=== PATIENT | female | born 1990 | race Caucasian/White ===

== ENCOUNTER 2022-05-06 08:32 | Outpatient (CLI) | payer BC, SELFPAY ==
--- NOTE | 2022-05-06 08:45 | CRLHL7_ITS ---
For Patients: As a result of the Cures Act, medical imaging exams and procedure reports are released immediately into your electronic medical record. You may view this report before your referring provider. If you have questions, please contact your health care provider. INDICATION: First trimester scan, establish dates. COMPARISON: None. TECHNIQUE: Real-time becerril-scale imaging of the pelvis was performed. FINDINGS: Sonographic imaging demonstrates a single living intrauterine gestation. The embryo demonstrates a regular cardiac rate measuring 176 beats per minute. The embryo`s crown-rump length measurement of 2.0 cm corresponds to a gestational age of 8 weeks 4 days with a sonographic due date of 12/12/2021. There is a normal-appearing yolk sac. There are no gross abnormalities noted within the embryo at this early state of development. The gestational sac has a normal appearance. Right fundal subchorionic hemorrhage measures 1.7 x 1.2 x 1.7 cm. Left mid subchorionic hemorrhage measuring 1.0 x 2.5 x 0.7 cm. The amount of fluid within the sac appears appropriate for gestational age. The cervix is closed. The myometrium appears normal. The ovaries are of normal size. Corpus luteal cyst and simple cyst right ovary. There are no suspicious fluid collections noted in the cul-de-sac. IMPRESSION: Single living intrauterine with sonographic gestational age 8 weeks 4 days and sonographic due date 12/12/2022. Subchorionic hemorrhages measuring 1.7 cm and 2.5 cm. Dictated by Rodolfo Mclean MD @ 05/06/2022 10:34:08 AM (Electronically Signed)
== END 2022-05-06 08:33 | disposition home or self-care (01) ==
PROVIDERS: Visit Provider Advanced Practice Midwife
DX: Z34.91 Encounter for supervision of normal pregnancy, unspecified, first trimester (principal)
CPT/HCPCS: 76817; 86592; 86703; 86762; 86787; 86803; 86850; 86900; 86901; 87086; 87340; 87491; 87591

== ENCOUNTER 2022-06-03 09:49 | Outpatient (CLI) | payer BC, SELFPAY ==
[2022-06-03 14:29] LABS: Alanine Aminotransferase* 13 U/L (4-35); Aspartate Amino Transferase* 19 U/L (12-35); Blood Urea Nitrogen* 14 mg/dL (5-24); Creatinine* 0.5 mg/dL (0.5-1.5); Estimated Glomerular Filt Rate 129 ml/min
[2022-06-03 14:42] LABS: Total Protein Urine < 5 mg/dL
[2022-06-03 14:44] LABS: Creatinine Urine 222.1 mg/dL
== END 2022-06-03 09:50 | disposition home or self-care (01) ==
PROVIDERS: Visit Provider Physician Assistant
DX: Z34.91 Encounter for supervision of normal pregnancy, unspecified, first trimester (principal); Z3A.12 12 weeks gestation of pregnancy
CPT/HCPCS: 82565; 82570; 84156; 84450; 84460; 84520; 84550

== ENCOUNTER 2022-07-25 09:32 | Outpatient (CLI) | payer BC, SELFPAY ==
--- NOTE | 2022-07-25 09:45 | CRLHL7_ITS ---
For Patients: As a result of the Century Cures Act, medical imaging exams and procedure reports are released immediately into your electronic medical record. You may view this report before your referring provider. If you have questions, please contact your health care provider. INDICATION: Evaluate anatomy. COMPARISON: None. TECHNIQUE: Real time becerril scale imaging of the fetus was performed. FINDINGS: Sonographic imaging demonstrates a single living intrauterine gestation. Fetus demonstrates a regular cardiac rate of 150 beats per minute. Fetus has a breech orientation and longitudinal lie. The placenta lies anteriorly without evidence of placenta previa. Amniotic fluid volume appears normal. Single deepest vertical pocket: 5.3 cm. The cervix is closed and measures 3.0 cm in length. The composite ultrasound gestational age is calculated at 20 weeks 0 days with an estimated sonographic due date of December 12, 2022. The estimated weight is 317 grams which lies at the 45th percentile. The following biometric measurements were obtained: Biparietal diameter: 4.8 cm/ 20 weeks 3 days 75% Head circumference: 17.3 cm/19 weeks 6 days 43% Abdominal circumference: 14.9 cm/20 weeks 1 day 54% Femur length: 3.1 cm/19 weeks 3 days 29% The HC/AC ratio measures: 1.17 range (1.08-1.25) On anatomic survey, there is a normal appearance of the cerebral ventricles, cisterna magna and cerebellum. The nose, lips, and facial profile appear normal. The cervical, thoracic and lumbar spine are well visualized and appear normal. There is a normal four-chamber heart view and the left and right ventricular outflow tracts appear normal. diaphragm, stomach, kidneys and bladder appear normal. There is a normal three-vessel cord and cord insertion site. The four extremities appear normal. IMPRESSION: Normal OB ultrasound exam with concordance of clinical and sonographic dating. No intrinsic abnormalities noted on anatomic survey. Dictated by Ras Jesus MD @ 07/25/2022 11:03:27 AM (Electronically Signed)
== END 2022-07-25 09:33 | disposition home or self-care (01) ==
LOC: US 09:33
PROVIDERS: Visit Provider Advanced Practice Midwife
DX: Z34.92 Encounter for supervision of normal pregnancy, unspecified, second trimester (principal); Z3A.20 20 weeks gestation of pregnancy
CPT/HCPCS: 76805

== ENCOUNTER 2022-09-25 07:56 | Outpatient (CLI) | payer BC, SELFPAY | END 2022-09-25 07:57 | disposition home or self-care (01) | LOC: NFLDREF 09-27 09:07 | PROVIDERS: Visit Provider Advanced Practice Midwife | DX: Z34.90 Encounter for supervision of normal pregnancy, unspecified, unspecified trimester (principal) | CPT/HCPCS: 86592 ==

== ENCOUNTER 2022-11-19 10:39 | Outpatient (CLI) | payer BC, SELFPAY ==
[2022-11-20 11:19] LABS: Strep B DNA Probe NEGATIVE (Negative); Strep B Pen/Amox Allergy No
== END 2022-11-19 10:40 | disposition home or self-care (01) ==
LOC: NFLDREF 10:40
PROVIDERS: Visit Provider Advanced Practice Midwife
DX: Z34.93 Encounter for supervision of normal pregnancy, unspecified, third trimester (principal); Z3A.36 36 weeks gestation of pregnancy
CPT/HCPCS: 87081; 87653

== ENCOUNTER 2022-12-12 19:12 | Inpatient (IN) | payer BC, SELFPAY ==
[2022-12-12 18:44] LABS: Amnisure Rom* POSITIVE
[2022-12-12 19:26] VITALS: BMI 34.3
--- NOTE | 2022-12-12 19:26 | W.PM.LDBA ---
Subjective History of Present Illness Time Seen by Provider: 19:42 Date Seen: 12/12/22 Comments: Viri is being admitted to Labor and Delivery for SROM, early labor. She is a 32 year old G 2 P 1 at?39.6 weeks gestation. Her full history and physical was dictated by Carlos Small on 11/28/22. Please see this for details. She states SROM, small amount of clear fluid occurred between [id number] while she was napping. Ctx started yesterday evening after a membrane sweep in the office, but became more intense around 1530. She is coping well with labor pain/contractions. Her Kyree is with her for support. She is planning an unmedicated if she goes as quickly as last time, but is open to an epidural if needed. OB Problem List: [id number] Kyree H&P done by ADORE Bentley on 11/28/2022 1. Hx Pre-E with 1st. IOL at 38 weeks. Denies magnesium. Baseline Pre-E labs 06/03/21:normal, pr/cr ratio: 0.00 ASA 81mg 2. SCHx2: 1.7x1.2x1.7 and 1.0x2.5x0.7 3. Anemia, hgb 10.7 Taking Slow Fe iron 11.2 at 34wks. OB - Problem Based A/P Additional Plan (1) SROM (spontaneous rupture of membranes): Status: Acute (2) Uterine contractions: Status: Acute (3) Supervision of other normal : Status: Acute (4) History of pre-eclampsia in prior , currently : Status: Acute Plan 32 yo at 39.6 weeks GBS negative SROM, clear fluid complicated by: -hx of preeclampsia -anemia, improved at 34 weeks 1. Admit to L & D 2. Intermittent monitoring at this time per protocol 3. No IV needed at this time 4. Candidate for analgesia of choice. Planning unmedicated, but open to what she needs. 5. Declines waterbirth 6. Expectant management at this time. Will continue to monitor for progress. 7. Anticipate progress to NVD Delivery/Labor/Induction Plan Plan: expectant management OB Exam Physical Exam Narrative: VSS, afebrile? General Appearance:? Calm, cooperative.? No acute distress.? Normal affect.? Psychiatric Exam: Alert and oriented, appropriate affect? HEENT: normocephalic, neck supple, full ROM? Respiratory:? Symmetrical chest wall movement.? Normal respiratory effort.? Clear to auscultation? Cardiac:? regular rate and rhythm? Abdomen: Gravid, non tender? Extremities:? normal and trace edema? Skin: warm, dry.??? Ctx:? Q 2-5 min apart.? Mild?- Moderate? ? FHTs:? Baseline: 135.? Variability: Moderate.?? Accels: present.??? Decels:? none.? SVE: 3-/-1? Membranes: ? SROM,? clear fluid, X 4.5 hours? Detailed Labor and Delivery Exam Patient Gravid: Yes
[2022-12-12 19:37] VITALS: PULSE 92; O2SAT 97
[2022-12-12 19:38] VITALS: BP 124/77; PULSE 85; RESP 16; TEMP 36.6
[2022-12-12 20:34] VITALS: BP 131/80; PULSE 85; RESP 16; TEMP 36.5
[2022-12-12 21:28] VITALS: BP 122/73; PULSE 97; RESP 16; TEMP 36.4
[2022-12-12 22:30] VITALS: BP 123/87; PULSE 100; PULSE 104; RESP 18; TEMP 36.4; O2SAT 96
[2022-12-12 23:33] VITALS: BP 123/58; PULSE 96; RESP 18; TEMP 36.9
[2022-12-13] VITALS (39 sets, daily range): BP systolic 108–138; BP diastolic 55–80; PULSE 80–151; RESP 16–20; TEMP 36.5–36.8; O2SAT 97–100
[2022-12-13] MEDS: LACTATED RINGERS 1000 ML 1,000 ML 1200 ML IV ×2 (01:54→02:45)
[2022-12-13] MEDS: ROPIVACAINE 0.2 % PF 10 ML INJ 20 MG EPIDURAL (02:27)
[2022-12-13] MEDS: LIDOCAINE 2% (PF) 5 ML VIAL EPIDURAL (02:28)
[2022-12-13] MEDS: ROPIVACAINE 0.2% 100 ml 100 ML 12 MG EPIDURAL (02:32)
--- NOTE | 2022-12-13 02:34 | P.ANBPRC_ITS ---
[facility] Medical History Migraines ?G43.909 - Migraine, unspecified, not intractable, without status migrainosus (ICD-10) Pre-eclampsia (07/2020) ?O14.90 - Unspecified pre-eclampsia, unspecified trimester (ICD-10) Normal spontaneous vaginal delivery ?O80 - Encounter for full-term uncomplicated delivery (ICD-10) Surgical History [place] teeth extracted ?K08.409 - Partial loss of teeth, unspecified cause, unspecified class (ICD- 10) H/O wrist surgery ?Z98.890 - Other specified postprocedural states (ICD-10) Family History Father High blood pressure Social History What is your current living situation?: I presently have a place to live Problems where you live: no known problems In the past 12 months, utilities in danger of being shut off: no In the past 12 mos, have been you worried that your food would run out before you had money to buy more?: never true In the past 12 mos, the food you bought just didn't last and you didn't have money to buy more?: never true Are you following a diet prescribed by a doctor: No Are you following a special diet: No Highest level of school completed/degree received: Master's degree Physical activity type: walking and yoga How many days of moderate to strenuous exercise, like a brisk walk, did you do in the last 7 days: 2 Smoking Status: Never smoker Second hand tobacco smoke exposure: No Non-prescribed substance use: denies use Caffeine: Yes (1 cup a day) How often does anyone, including family, friends and others, physically hurt you : never How often does anyone, including family, friends and others, insult or talk down to you: never How often does anyone, including family, friends and others, threaten you with harm: never How often does anyone, including family, friends and others, scream or curse at you: never Little interest or pleasure in doing things: not at all Feeling down, depressed, or hopeless: not at all Meds Home Medications and Allergies Home Medications Medication Instructions Recorded Confirmed Type prenat.vits,dionte,jtl-gyat-vltsl 1 tab PO QDAY 05/06/22 12/12/22 History aspirin 81 mg chewable tablet 81 mg PO QDAY 07/25/22 12/12/22 History ferrous sulfate, dried 144 mg (45 144 mg PO QDAY 10/23/22 12/12/22 History mg iron) tablet,extended release Allergies Allergy/AdvReac Type Severity Reaction Status Date / Time No Known Drug Allergies Allergy Verified 12/11/22 09:24 Results Labs Labs: Laboratory Results - last 24 hr 12/12/22 18:15 Membrane Rupture POSITIVE Vital Signs Vital Signs: Last Vital Signs Temp 97.8 F 12/13/22 01:32 Pulse 93 12/13/22 02:31 Resp 18 12/13/22 00:34 BP 138/80 12/13/22 02:31 Pulse Ox 99 12/13/22 02:23 Weight: 87.997 kg Height: 160.02 cm Anesthesia Procedures Epidural Insertion Patient Location: OB Start Time: 01:50 Stop Time: 02:35 Start Date: 12/13/22 Stop Date: 12/13/22 Reason for Block: procedure for pain Patient Position: sitting Performed By: Jasvir Ly Preanesthetic Checklist: IV checked, risks and benefits discussed, surgical consent, monitors and equipment checked, pre-op evaluation, timeout performed and anesthesia consent Prep: chlorhexidine gluconate Monitoring: blood pressure monitoring, continuous pulse oximetry and heart rate Approach: midline Vertebral Space: lumbar (1-5) Epidural Technique: PONCE air Needle Type: Tuohy needle Injection Technique: continuous catheter Needle gauge: 17 Needle Length (cm): 10 cm Needle Insertion Depth (cm): 7 Catheter Gauge: 19 Catheter Type: multi-orifice Catheter at skin depth (cm): 13 Test Dose Result: negative and lidocaine 1.5% with epinephrine 1 to 200,000
[2022-12-13] MEDS: fentaNYL 100 MCG/2 ML inj EPIDURAL (02:54)
[2022-12-13] MEDS: OXYTOCIN 30 unit/500 ML in NS 30 UNIT/500 ML BAG 300 UNIT IVPB (03:37)
--- NOTE | 2022-12-13 03:49 | W.PM.OBVAGDE ---
OB Procedure Vag Delivery Mother Details Mother Details: The patient is a 32 year-old, 2, Para 1, admitted on 12/12/22 at 39.6 Days gestation. Delivery occurred 12/13 at 40 weeks gestation. : 2 Para: 2 Weeks Gestation: 40.0 Admission Date: 12/12/22 Additional Details Amniotic Membrane Status: SROM Amniotic Membrane Rupture Date: 12/12/22 Amniotic Membrane Rupture Time: 15:00 Amniotic Membrane Fluid Description: Clear Analgesia/Anesthesia Type: Epidural and Nitrous Oxide Waterbirth: No Pitcoin: No (PP only for AMTSL) Intrapartal Events: None Labor Onset: 01:37 Complete: 03:07 Pushin:12 Heart: heart tones during second stage were 135 baseline, mod variability. As pushing cont, decel noted w/ ctx, X3 min, umesh 90s. Briefly returned to baseline, and then noted in the 60s w/ . Delivery Details Delivery Date: 12/13/22 Delivery Time: 03:27 Route of delivery: Infant Gender: Male Viability: Alive; Heart Rate Present Position at Delivery: OA Delivery Details: Viri used nitrous oxide for a while to cope w/ ctx. She then requested an epidural. SVE at that time 5/100/0 station. Epidural placed, but limited relief on one side, and strong urge to push noted. SVE 8 cm. Within a few ctx, noted stronger urge to push, and SVE complete. She pushed w/ good descent. Small anterior lip noted to be trapped during pushing, able to reduce while pushing. Decel noted, with brief return to baseline, did try turning to the other side w/ little change noted. FHTs then noted to be in the 60s w/ . Decision made to continue to push w/o ctx. Head slowly delivered w/ maternal effort alone. Shoulders unable to deliver with gentle traction. CNMs hand moved, and baby allowed to restitute. Shoulders noted to be parallel to the floor. Gentle traction applied, and attempt made to help rotate the shoulders into a perpendicular position. Shoulders and body delivered slowly. At 0327 a viable?male infant?delivered in vertex OA presentation over intact perineum via spontaneous vaginal?delivery. ? was placed on maternal abdomen. ?Cord was clamped and cut after a 5+ minute?delay.? Nose and mouth were bulb suctioned.? weight pending. ? 9 at 1 minute and 9 at 5 minutes. ?Shoulder dystocia: no. Difficulty in shoulder delivery likely r/t lack of ctx w/ maternal pushing, and position of the shoulders being sideways. ?Nuchal cord: no. Placenta?delivered spontaneously and complete at 0336 with a 3 vessel cord. Membranes slowly twisted out w/ delivery of placenta. Believed to be intact, but unable to determine as they were shredded and wrapped around the cord, no longer attached to the placenta. Mother and were stable after?delivery. Lacerations:?no lacerations Blood loss: 275 mL. Blood loss measurement type: QBL? 1 Minute Interval Total Score: 9 5 Minute Interval Total Score: 9 Additional Details Shoulder Dystocia: No Placenta Delivery Time: 03:36 Placental Delivery Description: Spontaneous Procedure Done: Global Blood Loss: 275 Laceration: None Blood Loss Measurement Type: QBL Bakri Used: No Sponge/Need Count Correct: Yes Cord Vessel Description: 3 Vessels Event Summary Status: Mother and infant were stable after delivery.
[2022-12-13] MEDS: ACETAMINOPHEN 500 MG TABLET 1000 MG PO (04:07)
[2022-12-13] MEDS: DOCUSATE SODIUM 100 MG CAPSULE PO (10:25)
[2022-12-13] MEDS: IBUPROFEN 600 MG TABLET PO ×2 (10:25→19:31)
[2022-12-14 00:34] VITALS: BP 124/88; PULSE 97; RESP 16; TEMP 36.8; O2SAT 96
--- NOTE | 2022-12-14 08:34 | P.DS_ITS ---
DS: Providers Provider Time Seen by Provider: 08:34 Date Seen: 12/14/22 Date of admission: 12/12/22 19:12 Primary care physician: Not a Local Provider Admitting Clinician: [place] Lo CNM Attending Physician on discharge: [place] Lo CNM Date of Discharge: 12/14/22 DS: Diagnosis Discharge Diagnosis (1) NVD (normal vaginal delivery): Status: Acute (2) Lactating mother: Status: Acute Exam Narrative: Exam Narrative: VSS, afebrile GENERAL APPEARANCE: ?normal affect, alert, no distress MOOD: ?appropriate HEENT: normocephalic, neck supple, full ROM CHEST: ?Symmetrical chest wall movement. ?Normal respiratory effort. ?Clear to auscultation HEART: ?regular rate and rhythm ABDOMEN: ?soft, non-tender. Uterine fundus is firm, at Umbilicus, Midline and is appropriate for the stage of recovery. ?Bowel sounds present. PERINEUM: ?mild edema of the perineum, there is no laceration EXTREMITIES: ?normal and no edema Const: Vital Signs, click to edit/add: Vital Signs - 24 hr 12/13/22 09:23 12/13/22 12:15 12/13/22 15:28 Temperature 98.2 F 97.7 F Pulse Rate [Left A pical] 95 96 109 H Pulse Rate [Pulse Oximeter] Respiratory Rate 16 16 16 Blood Pressure [Le ft Arm] 111/77 114/73 115/74 Pulse Oximetry 97 97 98 Oxygen Delivery Me thod Room Air Room Air Room Air 12/13/22 19:45 12/14/22 00:34 Temperature 98.3 F 98.2 F Pulse Rate [Left A pical] 98 Pulse Rate [Pulse Oximeter] 97 Respiratory Rate 16 16 Blood Pressure [Le ft Arm] 115/78 124/88 Pulse Oximetry 98 96 Oxygen Delivery Me thod Room Air Room Air Documenting provider has reviewed patient's vital signs: yes OB - DS: Summary Hospital Course Hospital Course: Viri is a 32 y.o. G 2 P 2 who was admitted to L & D for SROM, early labor. ?She had an uncomplicated NVD The patient feels well. ?The pain is well controlled with current medications. ?She has no new complaints. ?She is breast feeding and reports things are going well.? the patient has done well.? Vitals have been stable.? She has remained afebrile.? Has a good appetite, is tolerating a general diet. ?She is voiding without difficulty.? She is passing gas and has had a bowel movement.? She is ambulating and denies any dizziness.? Has Small amount of rubra lochia. She is planning condoms for prevention. Problems: none plan: Discharge home with baby. Follow up in 2 weeks and 6 weeks. , may follow up with if needed Peripartum Data delivery method: Vaginal Laceration description: None complications: none [place] Gender: Male Infant Discharge Plan: Home Status at Discharge Functional status at discharge: independent ambulation Overall status at discharge: patient is progressing back to baseline Time Spent with Patient Time attestation: Total time spent providing and/or coordinating discharge services: Time spent: Less than 30 minutes Discharge Plan Discharge Disposition: Home, Self-Care Date of Admission: 12/12/22 19:12 Attending Provider on Discharge: [place] Lo Primary Care Provider: Provider,Not a Local Condition: Stable Anticipated Discharge Date/Time: 12/14/22 10:00 Discharge Medications: New docusate sodium 100 mg Capsule 100 mg PO BID PRNQty: 100 0RF Rx Instructions: Take 1 cap 1-2 times a day as needed for constipation ibuprofen 600 mg Tablet 600 mg PO Q6H PRNQty: 60 0RF Continued prenat.vits,dionte,[id number] Tablet 1 tab PO QDAY Discontinued aspirin 81 mg tablet,chewable 81 mg PO QDAY ferrous sulfate, dried 144 mg (45 mg iron) tablet extended release 144 mg PO QDAY Discharge Orders: Discharge Order (Routine); Ordered 12/14/22 Ordered By: [place] Lo Patient Education: OB Over the Counter Medication Information, OB Vaginal/Breast Feeding Activity Level: Activity as Tolerated Discharge Diet: Regular Follow Up Appointments: Provider,Not a Local [Primary Care Provider] - Forms: [email or web address] Info Instructions
[2022-12-14 08:57] VITALS: BP 123/76; PULSE 70; RESP 16; TEMP 36.7; O2SAT 98
== END 2022-12-14 12:15 | disposition home or self-care (01) | DRG 560 ==
LOC: OB OUT 19:13 → OB 19:13
PROVIDERS: Admitting Provider Advanced Practice Midwife; Visit Provider Advanced Practice Midwife
DX: O99.02 Anemia complicating childbirth (principal); D64.9 Anemia, unspecified; Z3A.39 39 weeks gestation of pregnancy; Z37.0 Single live birth
CPT/HCPCS: 01967; 84112; 85025; 86850; 86900; 86901; A9270; J2795; J3010; J7120

== ENCOUNTER 2025-05-24 10:21 | Outpatient (CLI) | payer BC, SELFPAY ==
[2025-05-28 03:59] LABS: HPV Source Endocervical
[2025-05-30 14:22] LABS: Pap Test Digital Imaging Done
== END 2025-05-24 10:22 | disposition home or self-care (01) ==
PROVIDERS: Visit Provider Family Medicine
DX: Z12.4 Encounter for screening for malignant neoplasm of cervix (principal)
CPT/HCPCS: 87624; 87625; 88141; 88142; 88175